=== PATIENT | female | born 1975 | race African-American/Black ===

== ENCOUNTER 2021-08-11 12:13 | Inpatient (IN) | payer OTHER ==
[2021-08-07 15:59] LABS: BASOPHILS # (AUTO) 0.1 (0.0-0.1); BASOPHILS % 0.6 % (0.0-1.0); EOSINOPHILS # (AUTO) 0.1 (0.0-0.4); EOSINOPHILS % 1.1 % (0.0-6.0); HEMATOCRIT 40.6 % (34.2-44.1); HEMOGLOBIN 13.1 g/dL (12.0-16.0); LYMPHOCYTES # (AUTO) 2.7 (1.0-3.2); LYMPHOCYTES % 30.1 % (18.0-39.1); MEAN CORPUSCULAR HEMOGLOBIN 27.9 pg (28-32); MEAN CORPUSCULAR HGB CONC 32.3 g/dL (31-35); MEAN CORPUSCULAR VOLUME 86.6 fL (81-99); MONOCYTES # (AUTO) 0.8 (0.2-0.8); MONOCYTES % 8.7 % (4.4-11.3); NEUTROPHILS # (AUTO) 5.3 (2.1-6.9); NEUTROPHILS % 59.1 % (38.7-80.0); PLATELET COUNT 232 x10e3/uL (140-360); RED BLOOD COUNT 4.69 x10e6/uL (3.6-5.1); RED CELL DISTRIBUTION WIDTH 14.6 % (11.7-14.4)
[2021-08-07 16:18] LABS: ANION GAP 14.6 mmol/L (8-16); CALCIUM 10.2 mg/dL (8.4-10.2); CREATININE, SERUM 0.82 mg/dL (0.57-1.11); POTASSIUM 3.6 mmol/L (3.5-5.1)
[2021-08-10] MEDS: SODIUM CHLORIDE 0.9% 1000ML 1,000 ML IV SCH (23:30)
[~2021-08-11] VITALS: Ht 162.6 cm; Wt 130.2 kg
[~2021-08-11 12:13] MED LIST: ALDACTAZIDE 251 EACH PO; AMLODIPINE BESYL5 MG PO; BUPIVACAINE 0.25% 30ML SDV ONE; GABAPENTIN100 MG PO; LOSARTAN POTASS25 MG PO; METOPROLOL SUCC50 MG PO; SODIUM CHLORIDE 0.9% 50ML 100 ML ONE
[2021-08-11] MEDS ORDERED: FENTANYL CITRATE/PF 100MCG/2 ML INJ ONE ×2 (12:25→16:17)
[2021-08-11] MEDS ORDERED: ONDANSETRON HCL INJ 2MG/ML 2ML 2 MG/ML VIAL ONE (13:14)
[2021-08-11] MEDS ORDERED: Morphine 2mg Syringe 2 MG/ML SYR IV PRN (15:00)
[2021-08-11] MEDS ORDERED: ONDANSETRON HCL 4 MG ORAL DISINTEGRATING TAB PO PRN (15:00)
[2021-08-11 15:15] VITALS: BP 100/69
[2021-08-11 15:16] VITALS: BP 100/69
[2021-08-11] MEDS: SODIUM CHLORIDE 0.9% 1000ML 1,000 ML IV SCH (15:41)
[2021-08-11] MEDS ORDERED: SCOPOLAMINE 1.5 MG PATCH TOP ONE (16:00)
[2021-08-11 16:03] VITALS: BP 100/69
[2021-08-11] MEDS: SIMETHICONE 80 MG CHEW PO SCH ×2 (16:16→20:13)
[2021-08-11] MEDS ORDERED: MIDAZOLAM HCL 2 MG/2 ML VIAL ONE (16:17)
[2021-08-11] MEDS: LOSARTAN POTASSIUM 25 MG TAB PO SCH (16:21)
[2021-08-11] MEDS: METOPROLOL SUCCINATE 50 MG TAB XL PO SCH (16:22)
[2021-08-11] MEDS: AMLODIPINE BESYLATE 5 MG TAB PO SCH (16:22)
[2021-08-11] MEDS: GABAPENTIN 100 MG CAP PO SCH (16:22)
[2021-08-11 20:00] VITALS: BP 139/89
[2021-08-11] MEDS: ENOXAPARIN SOD INJ 40 MG/0.4 ML SYR SC SCH (20:13)
[2021-08-11] MEDS: HYDROCODONE/APAP 7.5MG-325MG 1 EA TAB PO PRN (20:59)
[2021-08-12] VITALS: BP 157/94
[2021-08-12 04:00] VITALS: BP 153/103
[2021-08-12] MEDS: HYDROCODONE/APAP 7.5MG-325MG 1 EA TAB PO PRN (04:35)
[2021-08-12] MEDS: SODIUM CHLORIDE 0.9% 1000ML 1,000 ML IV SCH (05:19)
[2021-08-12 05:49] LABS: BASOPHILS % 0.2 % (0.0-1.0); HEMATOCRIT 40.8 % (34.2-44.1); HEMOGLOBIN 13.2 g/dL (12.0-16.0); LYMPHOCYTES # (AUTO) 2.1 (1.0-3.2); LYMPHOCYTES % 16.3 % (18.0-39.1); MEAN CORPUSCULAR HEMOGLOBIN 28.6 pg (28-32); MEAN CORPUSCULAR HGB CONC 32.4 g/dL (31-35); MEAN CORPUSCULAR VOLUME 88.3 fL (81-99); MONOCYTES # (AUTO) 0.9 (0.2-0.8); MONOCYTES % 7.1 % (4.4-11.3); NEUTROPHILS # (AUTO) 9.7 (2.1-6.9); NEUTROPHILS % 75.8 % (38.7-80.0); PLATELET COUNT 324 x10e3/uL (140-360); RED BLOOD COUNT 4.62 x10e6/uL (3.6-5.1); RED CELL DISTRIBUTION WIDTH 14.5 % (11.7-14.4)
[2021-08-12 06:17] LABS: ALBUMIN 3.7 g/dL (3.5-5.0); ALBUMIN/GLOBULIN RATIO 0.9 (0.8-2.0); CALCIUM 9.4 mg/dL (8.4-10.2); CREATININE, SERUM 0.73 mg/dL (0.57-1.11)
[2021-08-12 07:00] LABS: MAGNESIUM 1.9 MG/DL (1.3-2.1); PHOSPHORUS 2.8 MG/DL (2.3-4.7)
[2021-08-12 07:29] VITALS: BP 161/88
[2021-08-12 08:00] VITALS: BP 161/88
[2021-08-12] MEDS ORDERED: HYDROCODONE/APAP 7.5MG-325MG 1 EA TAB PO PRN (08:00)
[2021-08-12] MEDS: SIMETHICONE 80 MG CHEW PO SCH (08:41)
[2021-08-12] MEDS: METOPROLOL SUCCINATE 50 MG TAB XL PO SCH (08:42)
[2021-08-12] MEDS: ENOXAPARIN SOD INJ 40 MG/0.4 ML SYR SC SCH (08:42)
[2021-08-12] MEDS: GABAPENTIN 100 MG CAP PO SCH (08:42)
[2021-08-12] MEDS: LOSARTAN POTASSIUM 25 MG TAB PO SCH (08:42)
[2021-08-12] MEDS: AMLODIPINE BESYLATE 5 MG TAB PO SCH (08:42)
[2021-08-12] MEDS ORDERED: tylenol #3 PO (10:06)
[2021-08-12] MEDS ORDERED: ONDANSETRON ODT4 MG PO (10:06)
== END 2021-08-12 10:40 | disposition home or self-care (01) | DRG 621 ==
LOC: OR 12:13 → PACU V 12:14 → MED/SURG 14:44
PROVIDERS: ADMIT Internal Medicine; ATTEND Internal Medicine
PROC: 0DB64Z3 Excision of Stomach, Percutaneous Endoscopic Approach, Vertical (ICD-10-PCS; principal; 2021-08-11 10:00)
DX: E66.01 Morbid (severe) obesity due to excess calories (principal); I11.9 Hypertensive heart disease without heart failure; M32.9 Systemic lupus erythematosus, unspecified; Z20.822 Contact with and (suspected) exposure to COVID-19; Z68.43 Body mass index [BMI] 50.0-59.9, adult
CPT/HCPCS: 36415; 80048; 80053; 81025; 83735; 84100; 85025; 93005; 96361; J0690; J1650; J2250; J2405; J3010; J7030; Q0162; U0002